=== PATIENT | female | born 2000 | race Caucasian/White ===

== ENCOUNTER → 2018-07-24 16:11 | Outpatient (CLI) | payer OTHER, SELFPAY ==
[2018-07-27 14:13] LABS: Neisseria gonorrhoeae, NAA Negative (Negative)
== END ==
PROVIDERS: Visit Provider Nurse Practitioner Obstetrics & Gynecology
DX: Z34.90 Encounter for supervision of normal pregnancy, unspecified, unspecified trimester (principal)
CPT/HCPCS: 87491; 87591

== ENCOUNTER → 2018-08-02 11:30 | Outpatient (CLI) | payer OTHER, SELFPAY ==
[2018-08-02 12:44] LABS: Basophils % 0.4 % (0.1-2.0); Eosinophils # 0.1 K/mm3 (0.0-0.4); Eosinophils % 0.6 % (0.1-12.0); Hematocrit 37.3 % (37.0-47.0); Lymphocytes # 2.7 K/mm3 (0.7-4.5); Lymphocytes % 24.1 % (10-50); Mean Corpuscular HGB Conc 32.3 g/dL (31.8-35.4); Mean Corpuscular Hemoglobin 27.4 pg (27.0-31.2); Mean Corpuscular Volume 84.8 fl (81-99); Mean Platelet Volume 7.2 fl (7.4-10.4); Monocytes # 0.7 K/mm3 (0.1-1.0); Monocytes % 6.1 % (1.7-9.3); Neutrophils # 7.7 K/mm3 (1.8-7.8); Neutrophils % 68.9 % (37.0-80.0); Platelet Count 310 K/mm3 (142-424); Red Blood Count 4.39 M/mm3 (4.20-5.40); Red Cell Distribution Width 12.8 % (11.5-17.5); White Blood Count 11.2 K/mm3 (4.5-13.0)
[2018-08-03 08:26] LABS: HIV Screen 4th Generation wRfx Non Reactive (Non Reactive)
[2018-08-03 15:52] LABS: Hepatitis B Surface Antigen Negative (Negative); Hepatitis C Antibody <0.1 s/co ratio (0.0-0.9); Rapid Plasma Reagin Ab Titer Non Reactive (NonRea<1:1); Rubella Antibodies, IgG <0.90 index (Immune >0.99)
== END ==
PROVIDERS: Visit Provider Nurse Practitioner Obstetrics & Gynecology
DX: Z34.90 Encounter for supervision of normal pregnancy, unspecified, unspecified trimester (principal)
CPT/HCPCS: 36415; 85025; 86592; 86703; 86762; 86850; 87340; 87380; G0432

== ENCOUNTER → 2019-01-08 09:06 | Outpatient (CLI) | payer OTHER, SELFPAY ==
--- NOTE | 2019-01-08 09:31 | US_ITS ---
US OB /maternal detail: INDICATION: ITS.REASON: US OB Complete ORDERING PHYSICIAN: Jeffery Mahoney MD PATIENT AGE: 18 years TECHNIQUE: ultrasound transabdominal scanning. COMPARISON: No previous relevant studies. FINDINGS: Single viable intrauterine gestation. Ceph position. Placenta: POST placenta grade GR 1-2. There is average amount fluid. The cervix appears satisfactory. Closed and measuring 4 cm in length. Complete survey performed and was unremarkable on the submitted images as in PACS. No discrete anomalies identified on survey imaging by technologist. Active fetus. Three-vessel cord with satisfactory umbilical cord insertion. 4- chamber heart noted. Survey of brain & ventricles unremarkable. Face and neck survey unremarkable. Diaphragm and chest views unremarkable. Abdomen: Both kidneys noted and unremarkable. Stomach noted and satisfactory. Spine: Survey of the spine satisfactory with no anomalies identified nor imaged. Both arms and legs noted. Amniotic Fluid: Adequate. Maternal adnexa: No significant findings. Measurements: Average ultrasound age 31w0d. Gestational Age 31w1d. Estimated due date by ultrasound age 0603/12/2019. Estimated weight 1651 grams. BPD = 31w1d OFD = 31w5d HC = 31w2d AC = 31w0d FL = 30w4d Growth Percentile= 29% Heart Rate = 158 bpm Cerebellum = 32w3d Humerus = 29w5d HC/AC is 1.06 (0.96-1.17). CI is 76% (70-86%). FL/BPD is 75% (71-87%). FL/AC is 22% (20-24%). IMPRESSION: There is a single live fetus with an average ultrasound age of 31 weeks and 0 days. heart and body motion noted. All parameters correlate. No obvious anomalies. Please see above for detail.
== END ==
PROVIDERS: Visit Provider Nurse Practitioner Obstetrics & Gynecology
DX: Z36.0 Encounter for antenatal screening for chromosomal anomalies (principal)
CPT/HCPCS: 76811

== ENCOUNTER → 2019-02-13 17:47 | Outpatient (CLI) | payer SELFPAY | PROVIDERS: Visit Provider Nurse Practitioner Obstetrics & Gynecology | DX: Z34.90 Encounter for supervision of normal pregnancy, unspecified, unspecified trimester (principal) | CPT/HCPCS: 86403 ==

== ENCOUNTER → 2019-03-07 08:29 | Outpatient (CLI) | payer OTHER, SELFPAY ==
--- NOTE | 2019-03-07 09:20 | US_ITS ---
US OB follow up: Indication: Evaluate growth ITS.REASON: Maternal care for unstable lie ORDERING PHYSICIAN: Jeffery Mahoney MD PATIENT AGE: 18 years FINDINGS: There is a single live fetus present just in cephalic presentation. The following parameters are obtained: Average ultrasound age is 36w6d. Estimated due date by ultrasound is 03/29/2019. Estimated weight is 3067 grams. This is 16 percentile BPD: 35w6d OFD: 39w0d HC: 36w2d AC: 37w0d FL: 38w0d heart rate: 138 bpm. HC/AC: 0.97 (0.87-1.06) Cephalic index: 78% (70-86%) FL/BPD: 84% (71-87%) FL/AC: 22% (20-24%) Amniotic fluid index: 18 cm Placenta: Posterior high Gr 3 Cervix: Appears closed and measures 4 cm IMPRESSION: Single live fetus with an average ultrasound age 36 weeks 6 days with an estimated weight of 3067 g which is 16th percentile. There is posterior placenta which is grade 3. There is average amount of amniotic fluid.
== END ==
PROVIDERS: PCP Nurse Practitioner Obstetrics & Gynecology; Visit Provider Nurse Practitioner Obstetrics & Gynecology
DX: O32.0XX1 Maternal care for unstable lie, fetus 1 (principal)
CPT/HCPCS: 76816

== ENCOUNTER 2019-03-10 12:02 | Outpatient (CLI) | payer OTHER, SELFPAY ==
[2019-03-10 12:10] VITALS: BP 120/68; PULSE 78; RESP 20; TEMP 37; O2SAT 100; BMI 28.5; BMI 30.4
[2019-03-10 12:45] LABS: Microscopic, Urine URINE MICROSCOPIC (MICROSCOPIC)
[2019-03-10 12:51] LABS: Appearance,Urine CLOUDY (Clear); Bilirubin,Urine Negative (Negative); Blood, Urine 1+ (Negative); Color,Urine YELLOW (Yellow); Glucose,Urine (UA) Negative (Negative); Ketones,Urine 2+ (Negative); Leukocyte Esterase,Urine Negative (Negative); Nitrate,Urine Negative (Negative); Protein,Urine Negative (Negative); Specific Gravity, Urine 1.015 (1.005-1.030); Urobilinogen,Urine 0.2 EU/dl (0.2)
[2019-03-10 12:58] LABS: Amphetamine/Metha Screen,Urine Negative ng/mL (<1000); Barbiturates Screen,Urine Negative ng/mL (<200); Benzodiazepines Screen,Urine Negative ng/mL (<200); Cannabinoid Screen,Urine Negative ng/mL (<50); Cocaine Screen,Urine Negative ng/mL (<300); Methadone Screen,Urine Negative ng/mL (<300); Opiate Screen,Urine Negative ng/mL (<300); Phencyclidine Screen,Urine Negative ng/mL (<25)
[2019-03-10 13:08] LABS: Bacteria,Urine 3+ /lpf; Mucus,Urine 2+ /lpf; Squamous Epithelial Cell,Urine 20-50 #/hpf (0-5)
== END 2019-03-10 16:00 | disposition home or self-care (01) ==
LOC: OBOUT 12:03 → OB 12:05
PROVIDERS: Obstetrics & Gynecology; Visit Provider Nurse Practitioner Obstetrics & Gynecology
DX: Z34.90 Encounter for supervision of normal pregnancy, unspecified, unspecified trimester (principal)
CPT/HCPCS: 59025; 80305; 81001; 87086

== ENCOUNTER 2019-03-11 07:24 | Outpatient (CLI) | payer OTHER, SELFPAY ==
[2019-03-11 07:29] VITALS: BP 119/69; PULSE 91; RESP 18; TEMP 36.6; O2SAT 100; BMI 27.6
[2019-03-11 10:17] VITALS: BMI 27.6
== END 2019-03-11 10:05 | disposition home or self-care (01) ==
LOC: OBOUT 07:25 → OB 07:26
PROVIDERS: Visit Provider Nurse Practitioner Obstetrics & Gynecology
DX: O60.03 Preterm labor without delivery, third trimester (principal); Z3A.40 40 weeks gestation of pregnancy
CPT/HCPCS: 59025

== ENCOUNTER 2019-03-12 05:11 | Inpatient (IN) ==
[2019-03-12 06:18] LABS: Basophils % 0.2 % (0.1-2.0); Eosinophils % 0.1 % (0.1-12.0); Hemoglobin 11.4 g/dL (12.2-16.2); Lymphocytes # 1.9 K/mm3 (0.7-4.5); Lymphocytes % 10.6 % (10-50); Mean Corpuscular HGB Conc 32.6 g/dL (31.8-35.4); Mean Corpuscular Volume 82.8 fl (81-99); Mean Platelet Volume 7.7 fl (7.4-10.4); Monocytes # 0.7 K/mm3 (0.1-1.0); Monocytes % 3.7 % (1.7-9.3); Neutrophils # 15.5 K/mm3 (1.8-7.8); Neutrophils % 85.4 % (37.0-80.0); Platelet Count 255 K/mm3 (142-424); Red Blood Count 4.22 M/mm3 (4.20-5.40); Red Cell Distribution Width 14.2 % (11.5-17.5); White Blood Count 18.1 K/mm3 (4.5-13.0)
[2019-03-12 07:04] LABS: Microscopic, Urine URINE MICROSCOPIC (MICROSCOPIC)
[2019-03-12 07:13] LABS: Appearance,Urine CLOUDY (Clear); Blood, Urine 1+ (Negative); Color,Urine YELLOW (Yellow); Glucose,Urine (UA) Negative (Negative); Ketones,Urine 3+ (Negative); Leukocyte Esterase,Urine 3+ (Negative); PH,Urine 6.5 (5.0-8.5); Protein,Urine 1+ (Negative); Specific Gravity, Urine 1.025 (1.005-1.030)
[2019-03-12 07:20] LABS: Lymphocytes % 14 % (10-50); Monocytes % 3 % (2-9); Neutrophils % 83 % (42-76); Total Cells Counted 100
[2019-03-12 07:32] LABS: Bilirubin,Urine Negative (Negative)
[2019-03-12 07:34] LABS: Amphetamine/Metha Screen,Urine Negative ng/mL (<1000); Barbiturates Screen,Urine Negative ng/mL (<200); Benzodiazepines Screen,Urine Negative ng/mL (<200); Cannabinoid Screen,Urine Negative ng/mL (<50); Cocaine Screen,Urine Negative ng/mL (<300); Methadone Screen,Urine Negative ng/mL (<300); Opiate Screen,Urine Negative ng/mL (<300); Phencyclidine Screen,Urine Negative ng/mL (<25)
[2019-03-12 07:39] LABS: Bacteria,Urine 1+ /lpf; RBC,Urine Occasional #/hpf (0-3); WBC,Urine 20-50 #/hpf (0-3)
--- NOTE | 2019-03-12 08:22 | Progress Note ---
Labor Note - Subjective: Date: 03/12/19 Time: 08:21 irregular contractions - Objective: NST:: Reactive Contractions:: every 4-5 minutes Cervical Dilation:: 5 Effacement:: 100% Station: -3 Membranes: artificially ruptured Comment:: There was thin meconium - Fetus: Monitoring?: Yes monitoring type:: External - Assessment: Labor progressing?: Yes Cephalopelvic disproportion?: No Patient Problems: All Active Problems (Updated 03/07/19 @ 14:19 by Aracely Owens MD) Rubella non-immune status, antepartum (Acute) (Acute) Back strain (Acute) Head lice (Acute) Spotting (Acute) Right flank pain (Acute) Laceration of right middle finger w/o foreign body w/o damage to nail (Acute) Abdominal pain (Acute) First trimester (Acute) - Plan: Anesthesia for epidural?: Yes Continue to labor down?: Yes Plan for ?: No Continue to monitor?: Yes Start pushing?: No
--- NOTE | 2019-03-12 10:02 | Progress Note ---
[facility] Anesthesia Checklist - Patient Identification Patient Identification: Arm Band - Structural Data Admitted From: Home Planned Operative Procedure/s: labor epidural Consent for Planned Operative Procedure(s) Verified: Yes Verified Documents: Surgical Consent, History and Physical - NPO Status Verified Time NPO: 00:00 - Additional verifications Anesthesia Reactions: No - Airway Assessment C-Spine Mobility Assessed: Yes TMJ Mobility Assessed: Yes Dentition: Good Dentition - Neurological Assessment Level of Consciousness: Awake, Alert - Anesthesia Plan Anesthesia Risk discussed: Yes Anesthesia Plan: Verified ASA Class: II Anesthesia Type: Epidural [facility] History I have reviewed the patient's past medical history: Yes Medical History: Denies:: Anxiety, Cancer, Depression, Diabetes Mellitus Type 1, Diabetes Mellitus Type 2, Hypertension, Migraine, MRSA, Seizures *Have you ever received a pneumonia vaccine?: No *Have you received a flu vaccine this season?: No Other Medical History: Reports: Other Other Surgeries: Yes: No Previous Surgery. No: Amputation: No Fractures: No - *Social History Smoking Status: Never smoker Alcohol Intake: never Substance Use Type: denies use *Occupational Status:: unemployed *Travel in the last 8 weeks: None - Psychiatric History Pschychiatric History:: Denies:: Anxiety, Depression Family Hx:: No significant family history PLANT SCIENTIST history: Spontaneous Para: 0
--- NOTE | 2019-03-12 10:22 | Progress Note ---
Labor Note - Subjective: Date: 03/12/19 Time: 10:21 regular contraction - Objective: NST:: Reactive Contractions:: every 2-3 minutes Cervical Dilation:: 7-8 Effacement:: 100% Station: -1 Membranes: artificially ruptured - Fetus: Monitoring?: Yes monitoring type:: Internal and External Comment:: She had a prolonged deceleration that has now recovered. I applied a scalp clip. - Assessment: Labor progressing?: Yes Cephalopelvic disproportion?: No Patient Problems: All Active Problems (Updated 03/07/19 @ 14:19 by Aracely Owens MD) Rubella non-immune status, antepartum (Acute) (Acute) Back strain (Acute) Head lice (Acute) Spotting (Acute) Right flank pain (Acute) Laceration of right middle finger w/o foreign body w/o damage to nail (Acute) Abdominal pain (Acute) First trimester (Acute) - Plan: Anesthesia for epidural?: Yes Continue to labor down?: Yes Plan for ?: No Continue to monitor?: Yes Start pushing?: No
--- NOTE | 2019-03-12 11:32 | Procedure Note ---
- Delivery Note Delivery Date:: 03/12/19 Delivery Time:: 10:52 Anesthesia Type: Epidural Was labor medically induced?: No Infant delivered prior to 39 weeks?: No Justification for early elective delivery:: Active Labor Gender: Male at 1 minute: 9 at 5 minutes: 9 LAC or MLE?: LAC Delivery Procedure:: She is a 18-year-old 2 para 0 aborta 1 who was 40+1 weeks gestational age. She was seen yesterday and was having regular contractions and sent home. She arrived this morning and was 5 cm dilated. She had her membranes ruptured and under labor epidural progressed to full dilation. She was having prolonged decelerations and since she was fully dilated we have elected to place forceps in the direct OA position station +3. The prolonged bradycardia was in the 60s and 70s. I used Marc forceps with pads. The bladder was empty. I applied the forceps and using a long gentle pull I was able to easily deliver the head. It was noted that there was a nuchal cord that was reduced. After delivery the head the anterior shoulder easily delivered. The cord was clamped and cut and the infant was handed off to Dr. Cochran who assigned Apgars of 9 at 1 and 9 at 5 minutes. We then obtained cord blood as well as cord pH. The pH was 7.30. Using gentle traction on the cord and countertraction on the fundus I was able to easily deliver the placenta intact at 1055. It had a normal three-vessel cord. She had 1/4 degree perineal laceration and [facility] I closed the rectal mucosa using interrupted 2-0 Vicryl suture. I then used a second imbricating layer to take the tension off the first layer. I then grasped the edges of the sphincter muscle with Allis clamps. I then placed interrupted 2-0 PDS suture at the posterior anterior and superior edges of the sphincter muscle. These were individually placed and then tied in the order in which they were placed. I then closed the vaginal mucosa using running 3-0 Vicryl Rapide suture in a locked fashion. The deep tissues of the perineum were then closed with a single 2-0 PDS suture followed by interrupted subcuticular 2- 0 Vicryl suture. I then performed a rectal examination and the mucosa seemed intact. Her hull grinder is Dr. Cochran. She is rubella nonimmune. She has a positive blood. She was group A streptococcus negative. She plans to bottlefeed. Her estimated blood loss was approximately 1000 cc. Laceration:: vaginal Placental Delivery Description: Spontaneous
[2019-03-12 22:24] VITALS: BP 116/65
[2019-03-13 06:20] LABS: Hematocrit 24.4 % (37.0-47.0)
[2019-03-13 06:21] LABS: Hemoglobin 7.8 g/dL (12.2-16.2)
--- NOTE | 2019-03-13 09:18 | Progress Note ---
Internal Medicine - PN: Subj *Date: 03/13/19 *Time: 09:17 Interval history: She is doing well this morning. She is eating and drinking and ambulating. Her bottom is still sore but she is doing better. Her hemoglobin is low at 7.8 but her lochia is normal. She did lose a significant amount of blood at the time of her surgery since she had 1/4 degree tear. She is bottlefeeding. He denies any shortness of breath or dizziness. Exam Vital signs and Labs for Last 24 Hours: Temp Pulse Resp BP Pulse Ox 98.6 F 110 H 16 116/65 100 03/12/19 22:22 03/12/19 22:22 03/12/19 22:22 03/12/19 22:22 03/12/19 22:22 Laboratory Results - last 24 hr 03/12/19 11:00: Cord ABG pH 7.30 L 03/13/19 06:01: Hgb 7.8 L*, Hct 24.4 L I & O for Last 24 hours: Intake & Output 03/10/19 03/11/19 03/12/19 03/13/19 11:59 11:59 11:59 11:59 Weight 161 lb Microbiology Reports for the Last 24 Hours: Microbiology 03/12/19 06:00 Urine,Clean Catch Urine Culture - Final Multiple organisms, suggests contamination. - Constitutional no acute distress Assessment and Plan (1) Forceps delivery with baby delivered Current visit: Yes Status: Acute Category: Medical Code(s): O75.9 - Complication of labor and delivery, unspecified (2) Anemia, Current visit: Yes Status: Acute Category: Medical Code(s): O90.81 - Anemia of the puerperium (3) Rubella non-immune status, antepartum Current visit: No Status: Acute Category: Medical Code(s): O99.89 - Other specified diseases and conditions complicating , childbirth and the puerperium; Z28.3 - Underimmunization status - Assessment and plan all Dx Assessment and Plan for all problems:: She is doing well this morning. Her hemoglobin is low at 7.8 but otherwise she is doing well. She denies any shortness of breath or dizziness. We will plan to send her home tomorrow.
[2019-03-14 06:25] LABS: Hematocrit 25.3 % (37.0-47.0); Hemoglobin 8.1 g/dL (12.2-16.2)
--- NOTE | 2019-03-14 08:36 | Discharge Summary ---
General - General Admission date:: 03/12/19 Discharge date: 03/14/19 HPI HPI: She is a 18-year-old 2 now para 1 aborta 1 who was 40+1 weeks gestational age. She was having regular contractions and was admitted. She was found to be 5 cm dilated. Hospital Course Hospital Course: She had her membranes ruptured and under labor epidural she progressed to full dilation. She was having prolonged bradycardia so we elected to deliver the baby with forceps. We delivered a liveborn male child at 10:52 AM on the morning of March 12, 2019. The baby weighed 6 pounds 12 ounces and was 19-1/2 inches long. He had Apgars of 9 at 1 minute and 9 at 5 minutes. pH was 7.30. She had a fourth degree tear that was repaired in the usual fashion with 2-0 PDS suture to the sphincter muscles and deep tissues of the perineum. She has done well and has remained afebrile throughout her hospitalization. She is eating and drinking and ambulating. She did have significant bleeding at the time of her fourth degree laceration repair and her hemoglobin now is 8.1. She is otherwise symptomatic and denies any shortness of breath or dizziness. She has A positive blood, she is rubella nonimmune and was group B streptococcus negative. She is discharged home to follow-up with me in approximately 2 weeks time. She will continue with her vitamins and iron. She will continue with stool softeners. Her condition on discharge is stable. Rhogam Administration: Not Indicated Objective Vital signs: Temp Pulse Resp BP Pulse Ox 98.6 F 110 H 16 116/65 100 03/12/19 22:22 03/12/19 22:22 03/12/19 22:22 03/12/19 22:22 03/12/19 22:22 no acute distress Results Labs on day of discharge: Labs from last 24 hours 03/14/19 05:45 Hgb 8.1 L Hct 25.3 L DS: Diagnosis - Discharge Diagnosis (1) Forceps delivery with baby delivered Status: Acute (2) Anemia, Status: Acute (3) Rubella non-immune status, antepartum Status: Acute (4) Forceps delivery with baby delivered Status: Acute Discharge Plan - Patient Discharge Instructions ACTIVITY: No heavy lifting DIET: continue same diet - Follow up Plan Disposition: Home, Self-Retirement Medications: Home Medications Medication Instructions Recorded Confirmed Type 1 tab PO DAILY 07/24/18 03/12/19 History vitamin,calcium,afwddbpk-tnqr-wbsmw acid tablet promethazine 12.5 mg tablet 12.5 mg PO Q6H PRN #14 tab 08/23/18 03/12/19 Rx Ferrous Sulfate 325 mg PO DAILY 03/12/19 03/12/19 History Docusate Sodium [Docusate Sodium 100 mg PO DAILY #30 cap 03/14/19 Rx 100mg Cap] Prescriptions/Medication Reconciliation: New Docusate Sodium [Docusate Sodium 100mg Cap] 100 mg PO DAILY #30 cap Continued vitamin,calcium,bcyuxluk-rxvr-qhwww acid tablet 1 tab PO DAILY promethazine 12.5 mg tablet 12.5 mg PO Q6H PRN #14 tab PRN Reason: nausea and vomiting Ferrous Sulfate 325 mg PO DAILY
== END 2019-03-14 12:35 | disposition home or self-care (01) | DRG 768 ==
LOC: OB 05:11
PROVIDERS: ADMIT Obstetrics & Gynecology; ATTEND Nurse Practitioner Obstetrics & Gynecology
CPT/HCPCS: C1758

== ENCOUNTER → 2020-08-06 08:01 | Outpatient (CLI) | payer OTHER, SELFPAY ==
--- NOTE | 2020-08-06 08:12 | US_ITS ---
PROCEDURE: US ABDOMEN LIMITED CLINICAL INDICATION: RUQ PAIN COMPARISON: No exams were available for comparison FINDINGS: PANCREAS: Unremarkable. No obvious mass or abnormal fluid collection. No ductal dilatation LIVER: No focal liver lesions demonstrated. Homogeneous echogenicity. No intrahepatic biliary ductal dilatation evident. There is appropriate direction of blood flow within a non dilated portal vein RIGHT KIDNEY: Unremarkable. Normal size and echogenicity. No hydronephrosis GALLBLADDER: No gallstones, gallbladder wall thickening, pericholecystic fluid, or biliary dilatation. IMPRESSION: Unremarkable limited abdominal ultrasound as detailed above disc Dictated by: Gilbert Perez MD 08/06/2020 18:17 Gilbert Perez MD in [place] 08/06/2020 18:17
== END ==
PROVIDERS: PCP Internal Medicine Adolescent Medicine; Visit Provider Internal Medicine Adolescent Medicine
DX: R10.11 Right upper quadrant pain (principal)
CPT/HCPCS: 76705

== ENCOUNTER → 2020-08-13 12:51 | Outpatient (CLI) | payer OTHER, SELFPAY ==
[2020-08-14 10:22] LABS: Covid-19 Nasal PCR Sendout Lex NOT DETECTED
== END ==
PROVIDERS: PCP Internal Medicine Adolescent Medicine; Visit Provider Internal Medicine Adolescent Medicine
DX: Z03.818 Encounter for observation for suspected exposure to other biological agents ruled out (principal)
CPT/HCPCS: U0004

== ENCOUNTER 2021-08-24 19:19 | Emergency (ER) | payer OTHER, SELFPAY ==
[2021-08-24 20:03] VITALS: BP 110/80; PULSE 93; RESP 22; O2SAT 97; BMI 33.2
--- NOTE | 2021-08-24 20:04 | XR_ITS ---
PROCEDURE INFORMATION: Exam: XR Chest Exam date and time: 08/24/2021 8:04 PM Age: 20 years old Clinical indication: Pain; Cough; Left-sided TECHNIQUE: Imaging protocol: XR of the chest. Views: 2 views. COMPARISON: No relevant prior studies available. FINDINGS: Lungs: Unremarkable. No consolidation. Pleural spaces: Unremarkable. No pleural effusion. No pneumothorax. Heart/Mediastinum: Unremarkable. No cardiomegaly. Bones/joints: Unremarkable. IMPRESSION: No acute findings.
--- NOTE | 2021-08-24 21:02 | HMH.EDUTC ---
[facility] Disposition Clinical Impression: Pleurisy, Viral syndrome Acute bronchitis Qualifiers: Bronchitis organism: unspecified organism Qualified Code(s): J20.9 - Acute bronchitis, unspecified Disposition: Home, Self-Care Condition on Discharge: Good Instructions: Pleurisy, DI for Acute Bronchitis, DI for Pleurisy, DI for COVID-19 (Suspected or Confirmed ), Preventing the Spread of Coronavirus Discharge Instructions Additional Instructions: Drink plenty of fluids. Take tylenol or ibuprofen for pain or fever. Take the medications as directed. Follow up with your regular doctor. GO TO THE ER FOR ANY WORSENING SYMPTOMS Quarantine until you know the results of your covid-19 test. If it is positive, the health department should call you and give you further instructions about your length of Quarantine and other things. Notify your school or workplace of your results and follow their instructions regarding return to work/school. Prescriptions: Benzonatate [Benzonatate 100mg cap] 100 mg PO TIDP PRN #30 cap PRN Reason: Cough Transmission Status: Received by [facility] methylPREDNISolone [Medrol] 4 mg PO DIRECTED 6 Days #21 packet Transmission Status: Received by [facility] Azithromycin [Z-Umesh 250mg Tab*] 250 mg PO UD DOSE PK #6 tab Transmission Status: Received by [facility] Referrals: Provider,Referral, [Primary Care Provider] - Forms: Work/School Release Time of Disposition: 21:23 Medical Decision Making - Medical Records Medical records reviewed: No: I reviewed the patient's medical records. - Jesús Inquiry Pt receiving controlled substance: No Vital Signs: 08/24/21 20:03 08/24/21 21:35 Temperature 98.3 F Pulse Rate 93 H Pulse Rate [Left] 93 H Respiratory Rate 22 22 Blood Pressure 110/80 Blood Pressure [Right Arm] 110/80 Blood Pressure Mean [Right Arm] 90 02 Sat by Pulse Oximetry 97 - Lab Data Lab results reviewed: Yes: I reviewed the patient's lab results. Lab Results 08/24/21 21:10: [facility]st Clinic Negative Orders (Tests/Meds): ORDERS Category Date Time Status Covid-19 Nasal PCR ([facility] Routine Lab 08/24/21 21:25 Received [facility] HPI - General Stated complaint: cough, pain left ribs x1wk Time Seen by Provider: 08/24/21 21:02 Mode of Arrival: Ambulatory Source of Information: Patient Limitations: No Limitations Description of Symptoms (Recalled from Triage Doc. by RN): pt c/o a productive cough with yellow sputum and chest congestion and pressure. pt states she has had a cough x1 wk. pt states she was taking nyquil every night and it made the cough worse. HEENT Symptoms (Recalled from RN notes): No Resp Symptoms (Recalled from RN notes): Yes (productive cough with yellow sputum with lung pain) Skin Symptoms (Recalled from RN notes): No MS Symptoms (Recalled from RN notes): No Functional Status (Recalled from RN notes): wnl - History of Present Illness Provider Complaint: She is having chest pain that is worse with deep breathing and coughing. She has been coughing and congested for the past 5 days. She denies shortness of breath. She denies fever, but she has had some chilling. - Related Data Home Medications Medication Instructions Recorded Confirmed prenat.vits,sammie,mur-lbjw-tttbt 1 tab PO DAILY 07/24/18 10/14/19 Previous Rx's Medication Instructions Recorded Docusate Sodium [Docusate Sodium 100 mg PO DAILY #30 cap 03/14/19 100mg Cap] medroxyprogesterone 150 mg/mL 150 mg IM [id number] #1 ml 04/15/19 intramuscular suspension predniSONE [Prednisone 20mg 20 mg PO BID 5 Days #10 tab 07/30/19 Tab] estradiol 2 mg tablet 2 mg PO DAILY 30 Days #30 tab 10/14/19 Azithromycin [Z-Umesh 250mg Tab*] 250 mg PO UD DOSE PK #6 tab 08/24/21 Benzonatate [Benzonatate 100mg 100 mg PO TIDP PRN #30 cap 08/24/21 cap] methylPREDNISolone [Medrol] 4 mg PO DIRECTED 6 Days #21 08/24/21 packet Allergie
[2021-08-24 21:23] LABS: UTC Pregnancy Test, Urine Negative (Negative)
[2021-08-24 21:35] VITALS: BP 110/80; PULSE 93; RESP 22; TEMP 36.8
== END 2021-08-24 21:35 | disposition home or self-care (01) ==
PROVIDERS: Emergency Provider Nurse Practitioner Family
DX: J20.9 Acute bronchitis, unspecified (principal); Z20.822 Contact with and (suspected) exposure to COVID-19; B34.9 Viral infection, unspecified; R09.1 Pleurisy
CPT/HCPCS: 71046; 81025; 99202; C9803; G0463; U0003; U0005

== ENCOUNTER 2022-05-06 06:23 | Emergency (ER) | payer OTHER, SELFPAY ==
[2022-05-06 06:32] VITALS: BP 135/81; PULSE 121; RESP 16; TEMP 38.8; O2SAT 95; BMI 26.5
--- NOTE | 2022-05-06 06:33 | XR_ITS ---
FINAL REPORT CLINICAL HISTORY: congestion, cough, chills COMPARISON: 08/25/2021 FINDINGS: 2 views of the chest were obtained . The heart is normal in size. The mediastinum is within normal limits. The lungs are clear. There is no pneumothorax. Osseous structures are unremarkable. IMPRESSION: No acute cardiopulmonary process. Reviewed, Interpreted and Dictated by Chi Gore III, MD Transcribed by Barb Goldstein Authenticated and [facility]
[2022-05-06 06:40] LABS: Influenza A, PCR Not Detected (NotDetected); Influenza B, PCR Not Detected (NotDetected)
[2022-05-06 06:45] LABS: Basophils # 0.1 K/mm3 (0-0.2); Basophils % 1.7 % (0.1-2.0); Eosinophils # 0.1 K/mm3 (0.0-0.4); Eosinophils % 1.5 % (0.1-12.0); Hematocrit 44.8 % (37.0-47.0); Hemoglobin 14.5 g/dL (12.2-16.2); Lymphocytes # 0.5 K/mm3 (0.7-4.5); Lymphocytes % 8.6 % (10-50); Mean Corpuscular HGB Conc 32.4 g/dL (31.8-35.4); Mean Corpuscular Hemoglobin 27.9 pg (27.0-31.2); Mean Corpuscular Volume 85.9 fl (81-99); Mean Platelet Volume 7.9 fl (7.4-10.4); Monocytes # 0.5 K/mm3 (0.1-1.0); Monocytes % 8.3 % (1.7-9.3); Neutrophils # 4.4 K/mm3 (1.8-7.8); Platelet Count 311 K/mm3 (142-424); Red Blood Count 5.22 M/mm3 (4.20-5.40); Red Cell Distribution Width 13.2 % (11.5-17.5); White Blood Count 5.5 K/mm3 (4.8-10.8)
[2022-05-06 06:48] LABS: Strep Scrn Group A (Rapid) Negative (Negative)
[2022-05-06 06:50] LABS: Chloride 107 mmol/L (98-107); Sodium 140 mmol/L (136-145)
[2022-05-06 06:51] LABS: Potassium 3.7 mmoL/L (3.5-5.1)
[2022-05-06 06:53] LABS: Alanine Aminotransferase 41 U/L (12-78); Albumin Level 4.6 g/dl (3.5-5.0); Albumin/Globulin Ratio 1.2 (1.1-1.8); Alkaline Phosphatase 91 U/L (38-126); Anion Gap 12.7 mEq/L (5-15); Aspartate Amino Transferase 45 U/L (14-36); Bilirubin,Total 0.2 mg/dl (0.2-1.3); Blood Urea Nitrogen 6 mg/dl (7-17); Carbon Dioxide 24 mmol/L (22.0-30.0); Creatinine Clearance Estimated 134 mL/min (50-200); Estimated Glomerular Filt Rate 104 ml/min (>60); GFR (African American) 125 ML/MIN (>60); Globulin 3.8 g/dL (1.3-3.2); Total Protein,Serum 8.4 g/dl (6.3-8.2)
[2022-05-06 06:54] LABS: Calcium 9.7 mg/dl (8.4-10.2); Glucose 111 mg/dl (74-100); HCG Qualitative, Serum Negative (Negative)
--- NOTE | 2022-05-06 06:58 | HMH.EDFEV ---
ED Disposition Clinical Impression: COVID-19 UTI (urinary tract infection) Qualifiers: Urinary tract infection type: site unspecified Hematuria presence: without hematuria Qualified Code(s): N39.0 - Urinary tract infection, site not specified Disposition: Home, Self-Care Condition on Discharge: Good Instructions: DI for Fever (Symptom) -- Adult, DI for COVID-19 (Suspected or Confirmed ) Additional Instructions: fluids and call pcp for urine culture results Prescriptions: levoFLOXacin [Levaquin 500mg tab] 500 mg PO DAILY #7 tab Transmission Status: Pending to [facility] Referrals: Provider,Referral, [Primary Care Provider] - - Critical Care Critical Care Time: No Attestation: On 05/06/22, the high probability of a clinically significant, sudden or life threatening deterioration of the following system(s) required my full and direct attention, intervention and personal management. The time I documented below is in addition to time spent performing reported procedures but includes the following listed in this critical care notation. Medical Decision Making - Medical Records Medical records reviewed: Yes: I reviewed the patient's medical records. - Jesús Inquiry Pt receiving controlled substance: No Vital Signs: 05/06/22 06:32 Temperature 101.8 F H Temperature Source Oral Pulse Rate [Right Brachial] 121 H Respiratory Rate 16 Blood Pressure [Right Arm] 135/81 Blood Pressure Mean [Right Arm] 99 Blood Pressure Source [Right Arm] Automatic Cuff Blood Pressure Position [Right Arm] Sitting 02 Sat by Pulse Oximetry 95 Oxygen Delivery Method Room Air - Lab Data Lab results reviewed: Yes: I reviewed the patient's lab results. Lab Results 05/06/22 06:35: Group A Strep Rapid Negative 05/06/22 06:36: WBC 5.5, RBC 5.22, Hgb 14.5, Hct 44.8, MCV 85.9, MCH 27.9, MCHC 32.4, RDW 13.2, Plt Count 311, MPV 7.9, Neut % (Auto) 80.0, Lymph % (Auto) 8.6 L, [place] % (Auto) 8.3, Eos % (Auto) 1.5, Baso % (Auto) 1.7, Neut # (Auto) 4.4, Lymph # (Auto) 0.5 L, [place] # (Auto) 0.5, Eos # (Auto) 0.1, Baso # (Auto) 0.1 05/06/22 06:36: Sodium 140, Potassium 3.7, Chloride 107, Carbon Dioxide 24, Anion Gap 12.7, BUN 6 L, Creatinine 0.70, Estimated Creat Clear 134, Estimated GFR 104, Est GFR ( Amer) 125, Glucose 111 H, Calcium 9.7, Total Bilirubin 0.2, AST 45 H, ALT 41, Alkaline Phosphatase 91, C-Reactive Protein 23.3 H, Total Protein 8.4 H, Albumin 4.6, Globulin 3.8 H, Albumin/Globulin Ratio 1.2 05/06/22 06:36: Serum HCG, Qual Negative 05/06/22 07:06: Urine Color Yellow, Urine Appearance Sl cloudy, Urine pH 7.5, Ur Specific [place] 1.020, Urine Protein Negative, Urine Glucose (UA) Negative, Urine Ketones 2+, Urine Blood Trace-i, Urine Nitrate Negative, Urine Bilirubin Negative, Urine Urobilinogen 1.0, Ur Leukocyte Esterase 2+ A Result diagrams: 05/06/22 06:36 05/06/22 06:36 Orders (Tests/Meds): ED MEDICATIONS Generic Name Dose Route Start Last Admin Trade Name Freq PRN Reason Stop Dose Admin Sodium Chloride 1,000 mls @ 999 mls/hr 05/06/22 06:45 05/06/22 06:38 Sod Chlor 0.9% 1000ml Bag IV 05/06/22 07:45 999 mls/hr .[id number] ARUN Administration Discontinued Medications Generic Name Dose Route Start Last Admin Trade Name Freq PRN Reason Stop Dose Admin Acetaminophen 1,000 mg 05/06/22 06:38 05/06/22 06:39 Acetaminophen 500mg Tab PO 05/06/22 06:39 1,000 mg ONCE ONE Administration Ketorolac Tromethamine 30 mg 05/06/22 06:35 Ketorolac 30mg/Ml Vial IV 05/06/22 06:36 ONCE ONE Methylprednisolone Sodium Succinate 125 mg 05/06/22 06:35 Methylprednisolone Sod Succ 125mg Vial IV 05/06/22 06:36 ONCE ONE ORDERS Category Date Time Status XR chest 2V Stat Exams 05/06/22 06:33 Taken C-Reactive Protein Stat Lab 05/06/22 06:36 Results Complete Blood Count Auto Diff Stat Lab 05/06/22 06:36 Results Comprehensive Metabolic Panel Stat Lab 05/06/22 06:36 Results Erythr
[2022-05-06 06:59] LABS: C-Reactive Protein 23.3 mg/L (0-4)
[2022-05-06 07:00] VITALS: BP 103/70; PULSE 107; O2SAT 98
--- NOTE | 2022-05-06 07:03 | PC.NURSE ---
pt ambulatory to restroom without complication
--- NOTE | 2022-05-06 07:10 | PC.NURSE ---
pt ambulatory to radiology without complication
[2022-05-06 07:12] LABS: Microscopic, Urine URINE MICROSCOPIC (MICROSCOPIC)
[2022-05-06 07:13] LABS: Appearance,Urine SL CLOUDY (Clear); Bilirubin,Urine Negative (Negative); Blood, Urine TRACE-I (Negative); Color,Urine YELLOW (Yellow); Glucose,Urine (UA) Negative (Negative); Ketones,Urine 2+ (Negative); Leukocyte Esterase,Urine 2+ (Negative); Nitrate,Urine Negative (Negative); PH,Urine 7.5 (5.0-8.5); Protein,Urine Negative (Negative)
[2022-05-06 07:17] LABS: Erythrocyte Sedimentation Rate 17 mm/hr (0-20)
[2022-05-06 07:17] LABS: Coronavirus 19, PCR Detected (NotDetected)
[2022-05-06 07:24] LABS: Bacteria,Urine 1+ /lpf; RBC,Urine Occasional #/hpf (0-3)
--- NOTE | 2022-05-06 07:28 | PC.NURSE ---
at the bedside to review test results
--- NOTE | 2022-05-06 07:33 | PC.NURSE ---
pt medicated per mar. no needs voiced at this time
[2022-05-06 07:35] LABS: Procalcitonin 0.078 ng/mL (0.0-2.0)
[2022-05-06 08:37] VITALS: BP 129/72; PULSE 89; RESP 18; TEMP 37; O2SAT 96
== END 2022-05-06 08:38 | disposition home or self-care (01) ==
PROVIDERS: Emergency Provider Emergency Medicine
DX: U07.1 COVID-19 (principal); N39.0 Urinary tract infection, site not specified; J02.9 Acute pharyngitis, unspecified; M79.10 Myalgia, unspecified site; R53.81 Other malaise; R43.2 Parageusia; F32.A Depression, unspecified; F41.9 Anxiety disorder, unspecified; Z79.52 Long term (current) use of systemic steroids; Z79.899 Other long term (current) drug therapy
CPT/HCPCS: 71046; 80053; 81001; 84145; 84703; 85025; 85651; 86140; 87086; 87430; 96361; 96374; 96375; 99285; C9803; J0696; U0003; U0005

== ENCOUNTER 2022-09-12 14:42 | Emergency (ER) | payer OTHER, SELFPAY ==
[2022-09-12 18:40] VITALS: BP 131/80; PULSE 121; RESP 19; TEMP 38.2; O2SAT 98; BMI 28.3
[2022-09-12 18:45] LABS: UTC Influenza A Antigen Negative (Negative); UTC Influenza B Antigen Negative (Negative)
[2022-09-12 18:46] LABS: UTC Strep Screen (Rapid) Positive (Negative)
[2022-09-12 18:50] VITALS: BP 131/80; PULSE 121; RESP 19; TEMP 38.2; O2SAT 98
--- NOTE | 2022-09-12 18:53 | EXP.UTC ---
Discharge Plan Disposition Patient Disposition: Home, Self-Care Condition: Good Prescriptions Prescriptions: New azithromycin [Zithromax Z-Umesh] 250 mg tablet See Rx Instructions .ROUTE .COMPLEX 5 Days Qty: 6 0RF Rx Instructions: For 250 mg dose pack: take 500 mg today (day 1), then 250 mg for 4 days (days 2-5) No Action medroxyprogesterone 150 MG/ML suspension 150 mg IM [id number] levofloxacin 500 MG tablet 500 mg PO DAILY Qty: 7 0RF Referrals Follow up/Referrals: Provider,Referral, MD [Primary Care Provider] - See instructions Activity Restrictions/Add. Instructions Additional Instructions/Restrictions: *Monitor Temp, Over the counter Motrin or Tylenol as directed/as needed Tylenol every 4 hours and Motrin every 6 hours (as long as your family doctor has told you that you can take it) for fever or pain. and straight to ER if unable to lower temp less than 101.0 after medication given *Warm salt water gargles may help to soothe the throat *Throat Lozenges? *Warm fluids like tea with honey may help to soothe the throat? *Sleep elevated *Humidifier/Vaporizer *If you did not take Penicillin shot or was unable to, start taking antibiotic immediately and make sure that you take it for the FULL length of time although you should start to feel better in 24-48 hours *change toothbrush and toothpaste 24-48 hours after starting to take antibiotics so you do not reinfect yourself Monitor Temp. Tylenol and/or Ibuprofen as needed. ER if fever is no less than 101 despite alternating Tylenol and Ibuprofen * Encourage fluids, water, Gatorade, powerade, pedialyte if infant/toddler/or child *Cold fluids, popsicles and ice cream may feel good on his throat Follow up IMMEDIATELY for new or worsening symptoms or no Noticeable improvement over the next 48-72 hours. 911 for difficulty breathing or swallowing Clinical Impressions Clinical Impression: Strep throat Stand Alone Forms Stand Alone Forms: Work/School Release Instructions Patient Instructions: Strep Throat, DI for Strep Throat Discharge ED Provider: Mary Camacho [facility] HPI General Stated complaint: Fever,Sore throat Mode of Arrival: Ambulatory Source of Information: Patient Limitations: No Limitations Time Seen by Provider: 09/12/22 18:53 Description of Symptoms (Recalled from Triage Doc. by RN): PATIENT C/O SORE THROAT, FEVER, AND WEAKNESS SINCE YESTERDAY HEENT Symptoms (Recalled from RN notes): Yes Resp Symptoms (Recalled from RN notes): No Skin Symptoms (Recalled from RN notes): No MS Symptoms (Recalled from RN notes): No Functional Status (Recalled from RN notes): WNL History of Present Illness Provider Complaint: Patient states that she started yesterday with sore throat States that her right tonsil is very swollen and hurts when she swallows States that today her throat was hurting worse and hurt to swallow States that she has had headache and chills and felt like she had fever earlier Related Data Home Medications Medication Instructions Recorded Confirmed medroxyprogesterone 150 mg/mL 150 mg IM [id number] control 05/06/22 05/06/22 intramuscular suspension Previous Rx's Medication Instructions Recorded levofloxacin 500 mg tablet 500 mg PO DAILY #7 tabs 05/06/22 azithromycin 250 mg tablet See Rx Instructions PO .COMPLEX 5 09/12/22 (Zithromax Z-Umesh) days #6 tabs Allergies Allergy/AdvReac Type Severity Reaction Status Date / Time No Known Allergies Allergy Verified 10/14/19 14:40 Worker's Comp Is this a Worker's Comp case?: No [facility] Disclaimer: The information contained in this section may have been updated after the patient was seen, as this information can be updated by other users. Medical History (Updated 09/12/22 @ 19:03 by Mary Camacho APRN) No significant past medical history Social History (Updated 09/12/22 @ 18:49 by Deborah Davies RN) Smoking Status: Nev
== END 2022-09-12 19:32 | disposition home or self-care (01) ==
PROVIDERS: Emergency Provider Nurse Practitioner
DX: J02.0 Streptococcal pharyngitis (principal)
CPT/HCPCS: 87804; 87880; 96372; 99213; G0463; J0561

== ENCOUNTER → 2023-09-08 16:48 | Outpatient (CLI) | payer OTHER, SELFPAY | PROVIDERS: PCP Nurse Practitioner Family; Visit Provider Nurse Practitioner Family | DX: J02.9 Acute pharyngitis, unspecified (principal) | CPT/HCPCS: 87070 ==

== ENCOUNTER 2023-10-17 22:18 | Outpatient (CLI) | payer OTHER, SELFPAY | END 2023-10-17 23:59 | LOC: LAB.DROPOF 22:18 | PROVIDERS: PCP Nurse Practitioner Family; Visit Provider Nurse Practitioner Family | DX: R05.8 Other specified cough (principal); J02.9 Acute pharyngitis, unspecified; R19.7 Diarrhea, unspecified | CPT/HCPCS: 87070; 87635 ==

== ENCOUNTER 2024-10-25 11:20 | Outpatient (CLI) | payer OTHER, SELFPAY | END 2024-10-25 23:59 | disposition home or self-care (01) | LOC: LAB.DROPOF 10-26 08:53 | PROVIDERS: PCP Nurse Practitioner Family; Visit Provider Nurse Practitioner Family | DX: R69 Illness, unspecified (principal) | CPT/HCPCS: 87070 ==

== ENCOUNTER 2025-09-22 17:32 | Emergency (ER) | payer OTHER, SELFPAY ==
--- OUTSIDE RECORDS SUMMARY | 2024-12-28 16:30 | XMS_ITS ---
Author Organization [facility] Address [address] [facility] [address] [place] [address] Care Team Providers Care Printed Circuit Board Panels Trimmer Name Role Phone Papi Garland Primary Care Provider [phone] Migration, Provider Unavailable Unavailable REASON FOR VISIT Multum To Medispan Conversion Encounter Medications Medication SIG (Take, Route, Frequency, Duration) Notes Start Date End Date Status Phenergan 25 MG TABLET 1 TAB(S) ORALLY EVERY 6 HOURS; Duration: 3 DAY(S) *Please review and pick correct strength-formulation from [employer] options. If intended option is not shown, discontinue and re-order from Quick Search* 11/02/2021 Active Imitrex 100 MG Tablet 1 tab(s) orally once; Duration: 1 dose(s) at start of headache 11/02/2021 Active Encounters Encounter Location Date Provider Diagnosis [facility] [address] [facility] [address] [place] [id number] 12/28/2024 Provider Migration Intractable migraine without aura and without status migrainosus G43.019 Assessments Encounter Date Diagnosis (ICD Code) Assessment Notes Treatment Notes Treatment Clinical Notes Section Notes 12/28/2024 Intractable migraine without aura and without status migrainosus (ICD-10 - G43.019) Plan Of Treatment Medication Medication Name Sig Start Date Stop Date Notes Phenergan 25 MG TABLET 1 TAB(S) ORALLY EVERY 6 HOURS; Duration: 3 DAY(S) 11/02/2021 *Please review and pick correct strength-formulation from [employer] options. If intended option is not shown, discontinue and re-order from Quick Search* Imitrex 100 MG Tablet 1 tab(s) orally once; Duration: 1 dose(s) at start of headache 11/02/2021 Progress Notes * RADHAArina EDOB: [birth year] (24 yo F)Acc No.[id number]:12/28/2024 Patient: Arina Blanco Provider: Rajesh Brown :2000 A ge:24 Y S ex:Female Date:12/28/2024 Address:[address] [place], [place] [phone] Pcp:Papi Garland Subjective: * Chief Complaints: * M ultum To Medispan Conversion Encounter Assessment: * Assessment: 1. I ntractable migraine without aura and without status migrainosus - G43.019 (Primary) ? Plan: * Treatment: Billing Information: * Procedure Codes: * Electronic signature of Prov ider Migration on 09/22/2025 at 05:41 PM EST Sign off status: Pending * Provider: Rajesh Brown Date: 0 12/28/2024 Generated for Yonny santana/Kelsea/eTransmitting on: 1 05:41 PM EST
[2025-09-22 17:31] VITALS: BP 121/72; PULSE 86; RESP 18; TEMP 36.9; O2SAT 99; BMI 35.2
--- NOTE | 2025-09-22 17:34 | PC.NURSE ---
FSBS 151
--- NOTE | 2025-09-22 17:36 | PC.NURSE ---
FSBS 171 at this time
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
--- OUTSIDE RECORDS SUMMARY | 2025-09-22 17:41 | XMS_ITS | Patient Health Record ---
Author Organization [facility] Address [address] [place] [address] Care Team Providers Care Cleaner Laboratory Equipment Name Role Phone Papi Garland Primary Care Provider Migration, Provider Unavailable Unavailable Allergies No Known Allergies Reason For Referral No Information Medications Medication SIG (Take, Route, Frequency, Duration) Notes Start Date End Date Status Phenergan 25 MG TABLET 1 TAB(S) ORALLY EVERY 6 HOURS; Duration: 3 DAY(S) *Please review and pick correct strength-formulation from [employer] options. If intended option is not shown, discontinue and re-order from Quick Search* 11/02/2021 Active Imitrex 100 MG Tablet 1 tab(s) orally once; Duration: 1 dose(s) at start of headache 11/02/2021 Active Social History Tobacco Use: Social History Observation Description Date Details (start date - stop date) Never Smoker NA - NA Social History Social History Social Info Question Answer Notes Smoking: Are you a: nonsmoker Additional Details Category Social Info Options Details Social History Occupation: stay at home mom Travel outside [place]: no Alcohol: no Recreational drug use: no Exercise: no Caffeine: yes several sodas da dennis Living Will No Problems Problem Type SNOMED Code ICD Code Onset Dates Problem Status W/U Status Risk Notes Problem Refractory migraine without aura (821678212) Intractable migraine without aura and without status migrainosus (G43.019) Active confirmed Problem Amenorrhea (10499139) Amenorrhea (N91.2) Active confirmed Encounters Encounter Location Date Provider Diagnosis [facility] [address] [place] [address] 12/28/2024 Provider Migration Intractable migraine without aura and without status migrainosus G43.019 Assessments Encounter Date Diagnosis (ICD Code) Assessment Notes Treatment Notes Treatment Clinical Notes Section Notes 12/28/2024 Intractable migraine without aura and without status migrainosus (ICD-10 - G43.019) Plan Of Treatment Pending Test Test Name Order Date Ultrasound : Gallbladder 08/05/2020 M-COVID PCR SINGLE RAPID 08/13/2020 Insurance Providers Payer Name Payer Address Payer Phone Subscriber Number Group Number Insured Name Patient Relationship to Insured Coverage Start Date Coverage End Date [employer] [facility] [address] [address] [place] [address] [phone] [id number] Arina Lieberman Self - patient is the insured Medical (General) History Surgical History Surgery Date(Month/Year)
--- OUTSIDE RECORDS SUMMARY | 2025-09-22 17:41 | XMS_ITS | Data Portability ---
Author Organization [facility] [place] - [place] Address [address] [address] Care Team Providers Care Professor Of Surgery Name Role Phone MAO PACHECO Primary Care Provider Unavailabl e Assessment No assessment recorded. Plan of Treatment Reminders Order Date Submit Date Provider Last Modified By Organization Details Last Modified Time Details Appointments None recorded. Lab urinalysis, dipstick [address], [phone], 4 17:40:47 test, urine [email or web address] [place] [address], [address] [place] [address], [phone], 4 17:40:18 culture, urine 2023 024 MELLOTT [facility], [address] [place] [address], [address], 4 01:06:06 Referral None recorded. Procedures None recorded. Surgeries None recorded. Imaging XR, wrist, 3 or more view 2023 024 [email or web address] Not available 08:54:10 Medication Orders Bactrim DS 800 mg-160 mg tablet 2023 024 JETHRO [facility], [address] [place], [address], 4 17:59:14 citalopram 10 mg tablet 2023 024 [facility], [address] [place] [address], [address], 4 13:28:24 buspirone 10 mg tablet 2023 024 [facility], [address] [place] [address], [address], 4 17:57:19 Depo-Computer Training Specialist a 150 mg/mL intramuscul ar suspension 2023 024 [email or web address] Not available 4 16:25:31 Depo-Computer Training Specialist a 150 mg/mL intramuscul ar suspension 2023 024 [email or web address] Not available 4 17:12:33 prednisone 20 mg tablet 2023 024 [facility], [address] [place] [address], [address], 4 12:59:15 albuterol sulfate HFA 90 mcg/actuati on aerosol inhaler 2023 024 [facility], [address] [place] [address], [address], 4 16:29:20 Patient TargetsNo targets recorded. Patient InstructionsNo instructions recorded. Reason for Referral None Reported. Results Created Date Observation Date Name Description Value Unit Range Abnormal Flag Note LastModifiedBy Organization Detail LastModifiedTime 01/03/20 24 01/04/2024 THINP REP TIS PAP, HPV MRNA E6/E7 RFX HPV 16,18 /45, CHLAM YDIA/ N.STEPHANY ORRHO EAE report status: Not Available [facility] [place] [facility] [address] [facility], [place], [address], 01/04/2024 18:09:45 01/03/20 24 01/04/2024 THINP REP TIS PAP, HPV MRNA E6/E7 RFX HPV 16,18 /45, CHLAM YDIA/ N.STEPHANY ORRHO EAE clinical information: Not Available [facility] [place] [facility] [address] [place], [address], 01/04/2024 18:09:45 01/03/20 24 01/04/2024 THINP REP TIS PAP, HPV MRNA E6/E7 RFX HPV 16,18 /45, CHLAM YDIA/ N.STEPHANY ORRHO EAE LMP: Not Available [facility] [address] [place], [address], 01/04/2024 18:09:45 01/03/20 24 01/04/2024 THINP REP TIS PAP, HPV MRNA E6/E7 RFX HPV 16,18 /45, CHLAM YDIA/ N.STEPHANY ORRHO EAE prev. Pap: Not Available [facility] [address] [place], [address], 01/04/2024 18:09:45 01/03/20 24 01/04/2024 THINP REP TIS PAP, HPV MRNA E6/E7 RFX HPV 16,18 /45, CHLAM YDIA/ N.STEPHANY ORRHO EAE prev. BX: Not Available [facility] [address] [place], [address], 01/04/2024 18:09:45 01/03/20 24 01/04/2024 THINP REP TIS PAP, HPV MRNA E6/E7 RFX HPV 16,18 /45, CHLAM YDIA/ N.STEPHANY ORRHO EAE source: Not Available [employer] [facility] [place] [facility] [address] [place], [address], 01/04/2024 18:09:45 01/03/20 24 01/04/2024 THINP REP TIS PAP, HPV MRNA E6/E7 RFX HPV 16,18 /45, CHLAM YDIA/ N.STEPHANY ORRHO EAE statement of adequacy: Not Available [facility] [address] [place], [address], 01/04/2024 18:09:45 01/03/20 24 01/04/2024 THINP REP TIS PAP, HPV MRNA E6/E7 RFX HPV 16,18 /45, CHLAM YDIA/ N.STEPHANY ORRHO EAE general categorizati on: Not Available [facility] [address] [place], [address], 01/04/2024 18:09:45 01/03/20 24 01/04/2024 THINP REP TIS PAP, HPV MRNA E6/E7 RFX HPV 16,18 /45, CHLAM YDIA/ N.STEPHANY ORRHO EAE interpretati on/result: Not Available [facility] [address] [place], [address], 01/04/2024 18:09:45 01/03/20 24 01/04/2024 THINP REP TIS PAP, HPV MRNA E6/E7 RFX HPV 16,18 /45, CHLAM YDIA/ N.STEPHANY ORRHO EAE infection: Not Available [facility] [address] [place], [address], 01/04/2024 18:09:45 01/03/20 24 01/04/2024 THINP REP TIS PAP, HPV MRNA E6/E7 RFX HPV 16,18 /45, CHLAM YDIA/ N.STEPHANY ORRHO EAE comment: Not Available [facility] [place] [address] [place], [address], 01/04/2024 18:09:45 01/03/20 24 01/04/2024 THINP REP TIS PAP, HPV MRNA E6/E7 RFX HPV 16,18 /45, CHLAM YDIA/ N.STEPHANY ORRHO EAE cytotechnolo gist: Not Available [facility] - [address], [place], [address], 01/04/2024 18:09:45 01/03/20 24 01/04/2024 THINP REP TIS PAP, HPV MRNA E6/E7 RFX HPV 16,18 /45, CHLAM YDIA/ N.STEPHANY ORRHO EAE review cytotechnolo gist: Not Available [facility] [place] [facility] [address] [place], [address], 01/04/2024 18:09:45 01/03/20 24 01/04/2024 THINP REP TIS PAP, HPV MRNA E6/E7 RFX HPV 16,18 /45, CHLAM YDIA/ N.STEPHANY ORRHO EAE pathologist: Not Available [facility] [address] [place], [address], 01/04/2024 18:09:45 01/03/20 24 01/04/2024 THINP REP TIS PAP, HPV MRNA E6/E7 RFX HPV 16,18 /45, CHLAM YDIA/ N.STEPHANY ORRHO EAE HPV MRNA E6/E7 Not Available [facility] [place] [facility] [address] [place], [address], 01/04/2024 18:09:45 01/03/20 24 01/04/2024 THINP REP TIS PAP, HPV MRNA E6/E7 RFX HPV 16,18 /45, CHLAM YDIA/ N.STEPHANY ORRHO EAE chlamydia trachomatis RNA, tma, urogenital NOT DETECT ED not detect ed normal Not Available [facility] [place] [facility] [address] [place], [address], 01/04/2024 18:09:45 01/03/20 24 01/04/2024 THINP REP TIS PAP, HPV MRNA E6/E7 RFX HPV 16,18 /45, CHLAM YDIA/ N.STEPHANY ORRHO EAE neisseria gonorrhoeae RNA, tma, urogenital NOT DETECT ED not detect ed normal Not Available [facility] [place] [facility] [address] [place], [address], 01/04/2024 18:09:45 01/03/20 24 01/04/2024 THINP REP TIS PAP, HPV MRNA E6/E7 RFX HPV 16,18 /45, CHLAM YDIA/ N.STEPHANY ORRHO EAE comment The pasty tical perfo rmanc e chan cteri stics of this assay , when used to test SureP ath(T M) speci mens have been deter mined by [facility]. The modif icati ons have not been clear ed or appro sotero by the FDA. This assay has been valid ated pursu ant to the CLIA regul ation s and is used for clini sammie purpo ses. For addit ional natalier valencia jordan e refer to https ://ed ucati on.qu estdi crobo tics. com/f aq/FA Q154 (This link is being provi ded for infor darlene villanueva/ educa charlotte l purpo ses only. ) Not Available [facility] [place] [facility] [address] [place], [address], 01/04/2024 18:09:45 01/03/20 24 01/05/2024 THINP REP TIS PAP, HPV MRNA E6/E7 RFX HPV 16,18 /45, CHLAM YDIA/ N.STEPHANY ORRHO EAE clinical information: normal None given Not Available [facility] [place] [facility] [address] [place], [address], 01/05/2024 21:58:47 01/03/20 24 01/05/2024 THINP REP TIS PAP, HPV MRNA E6/E7 RFX HPV 16,18 /45, CHLAM YDIA/ N.STEPHANY ORRHO EAE LMP: normal NONE GIVEN Not Available [facility] [place] [facility] [address] [facility], [place], [address], 01/05/2024 21:58:47 01/03/20 24 01/05/2024 THINP REP TIS PAP, HPV MRNA E6/E7 RFX HPV 16,18 /45, CHLAM YDIA/ N.STEPHANY ORRHO EAE prev. Pap: normal NONE GIVEN Not Available [facility] [place] [facility] [address] [facility], [facility], [place], [address], 01/05/2024 21:58:47 01/03/20 24 01/05/2024 THINP REP TIS PAP, HPV MRNA E6/E7 RFX HPV 16,18 /45, CHLAM YDIA/ N.STEPHANY ORRHO EAE prev. BX: normal NONE GIVEN Not Available [facility] [place] [facility] [address] [facility], [facility], [place], [address], 01/05/2024 21:58:47 01/03/20 24 01/05/2024 THINP REP TIS PAP, HPV MRNA E6/E7 RFX HPV 16,18 /45, CHLAM YDIA/ N.STEPHANY ORRHO EAE source: normal None given Not Available [facility] [place] [facility] [address] [facility], [place], [address], 01/05/2024 21:58:47 01/03/20 24 01/05/2024 THINP REP TIS PAP, HPV MRNA E6/E7 RFX HPV 16,18 /45, CHLAM YDIA/ N.STEPHANY ORRHO EAE statement of adequacy: normal Satis facto ry for evalu ation . Endoc ervic al/tr ansfo rmati on zone compo nent prese nt. Parti ally obscu ring infla mmati on Not Available [facility] [place] [facility] [address] [facility], [facility], [place], [address], 01/05/2024 21:58:47 01/03/20 24 01/05/2024 THINP REP TIS PAP, HPV MRNA E6/E7 RFX HPV 16,18 /45, CHLAM YDIA/ N.STEPHANY ORRHO EAE general categorizati on: abnormal Cytol ogy Resul ts: Epith elial Cell Abnor malit y Not Available [facility] [place] [facility] [address] [facility], [facility], [place], [address], 01/05/2024 21:58:47 01/03/20 24 01/05/2024 THINP REP TIS PAP, HPV MRNA E6/E7 RFX HPV 16,18 /45, CHLAM YDIA/ N.STEPHANY ORRHO EAE interpretati on/result: abnormal Atypi sammie Squam ous Cells of Undet ermin ed Signi fican ce (ASC- [place]) Not Available [facility] [place] [facility] [address] [place], [address], 01/05/2024 21:58:47 01/03/20 24 01/05/2024 THINP REP TIS PAP, HPV MRNA E6/E7 RFX HPV 16,18 /45, CHLAM YDIA/ N.STEPHANY ORRHO EAE comment: normal This Pap test has been evalu ated with compu lazo techn ology . Not Available [facility] [place] [facility] [address] [place], [address], 01/05/2024 21:58:47 01/03/20 24 01/05/2024 THINP REP TIS PAP, HPV MRNA E6/E7 RFX HPV 16,18 /45, CHLAM YDIA/ N.STEPHANY ORRHO EAE cytotechnolo gist: normal DMB, CT( CP) CT Scree dominguez Locat ion: [facility] [address], [place] [address] Not Available [facility] [place] [facility] [address] [place], [address], 01/05/2024 21:58:47 01/03/20 24 01/05/2024 THINP REP TIS PAP, HPV MRNA E6/E7 RFX HPV 16,18 /45, CHLAM YDIA/ N.STEPHANY ORRHO EAE pathologist: normal Eliel baca M.D., Board Certi fied in Anato florencio Patho logy and Clini sammie Patho logy (elec troni c signa ture) Not Available [facility] [place] [facility] [address] [place], [address], 01/05/2024 21:58:47 01/03/20 24 01/05/2024 THINP REP TIS PAP, HPV MRNA E6/E7 RFX HPV 16,18 /45, CHLAM YDIA/ N.STEPHANY ORRHO EAE comment EXPLA NATOR Y NOTE: The Pap is a scree dominguez test for cervi sammie cance r. It is not a diagn ostic test and is subje ct to false negat sherley and false posit sherley resul ts. It is most relia ble when a satis facto ry sampl e, regul christina obtai mega, is submi tted with relev ant clini sammie findi ngs and histo ry, and when the Pap resul t is evalu ated along with histo ronald and curre nt clini sammie infor matio n. Not Available [facility] [place] [facility] [address] [facility], [place], [address], 01/05/2024 21:58:47 01/03/20 24 01/05/2024 THINP REP TIS PAP, HPV MRNA E6/E7 RFX HPV 16,18 /45, CHLAM YDIA/ N.STEPHANY ORRHO EAE HPV MRNA E6/E7 Detect ed not detect ed abnormal Metho dolog y: Trans cript ion-M ediat ed Ampli ficat ion This assay detec ts E6/E7 viral messe nger RNA (mRNA ) from 14 high- risk HPV types (16,1 8,31, 33,35 ,39,4 5,51, 52,56 ,58,5 9,66, 68). Cervi sammie sourc es are requi red for HPV testi ng. If a vagin al sourc e from a patie nt who has had a total hyste recto my with remov al of cervi x was submi tted, pleas e conta ct the testi ng labor atory for alter nativ e testi ng optio ns. For addit ional infor darlene villanueva pleas e refer to http: //[facility] priyanka villanueva.que stdia gnost ics.c om/fa q/FAQ 129v1 (This link if provi ded for infor darlene villanueva/ educa charlotte l purpo ses only. ) Not Available [facility] [place] [facility] [address] [facility], [facility], [place], [address], 01/05/2024 21:58:47 01/03/20 24 01/05/2024 THINP REP TIS PAP, HPV MRNA E6/E7 RFX HPV 16,18 /45, CHLAM YDIA/ N.STEPHANY ORRHO EAE chlamydia trachomatis RNA, tma, urogenital NOT DETECT ED not detect ed normal Not Available [facility] [place] [facility] [address] [facility], [address], [place], [address], 01/05/2024 21:58:47 01/03/20 24 01/05/2024 THINP REP TIS PAP, HPV MRNA E6/E7 RFX HPV 16,18 /45, CHLAM YDIA/ N.STEPHANY ORRHO EAE neisseria gonorrhoeae RNA, tma, urogenital NOT DETECT ED not detect ed normal Not Available [facility] [place] [facility] [address] [facility], [facility], [place], [address], 01/05/2024 21:58:47 01/03/20 24 01/05/2024 THINP REP TIS PAP, HPV MRNA E6/E7 RFX HPV 16,18 /45, CHLAM YDIA/ N.STEPHANY ORRHO EAE comment The patsy tical perfo rmanc e chan cteri stics of this assay , when used to test SureP ath(T M) speci mens have been deter mined by [facility]. The modif icati ons have not been clear ed or appro sotero by the FDA. This assay has been valid ated pursu ant to the CLIA regul ation s and is used for clini sammie purpo ses. For addit ional valencia goodrich e refer to https ://ed ucati on.qu larry pageTalkpush tics. com/f aq/FA Q154 (This link is being provi ded for infor darlene villanueva/ educa charlotte l purpo ses only. ) Not Available [facility] [place] [facility] [address] [facility], [facility], [place], [address], 01/05/2024 21:58:47 07/12/2007/15/2024 URINE CULTU RE, ROUTI NE urine culture, routine Final report Not Available [facility]) [address] [facility], [place], [address], 07/15/2024 01:06:06 07/12/2007/15/2024 URINE CULTU RE, ROUTI NE result 1 COMMEN T Mixed uroge nital kojo 25,00 0-50, 000 colon y formi ng units per mL Not Available [facility] ([facility] [address] [facility], [place], [address], 07/15/2024 01:06:06 07/12/2007/12/2024 pregn sumanth test, urine HCG negati ve Not Available [address], [address], 07/12/2024 17:15:21 07/12/2007/12/2024 urina lysis , dipst ick Leukocytes Large Not Available [address], [address], 07/12/2024 17:15:20 07/12/20 24 07/12/2024 urina lysis , dipst ick Nitrite negati ve Not Available [address], [address], 07/12/2024 17:15:20 07/12/2007/12/2024 urina lysis , dipst ick Urobilinogen .2 Not Available [address], [address], 07/12/2024 17:15:20 07/12/2007/12/2024 urina lysis , dipst ick Protein Negati ve Not Available [address], [address], 07/12/2024 17:15:20 07/12/2007/12/2024 urina lysis , dipst ick pH 6.0 Not Available [address], [address], 07/12/2024 17:15:20 07/12/2007/12/2024 urina lysis , dipst ick Blood Large Not Available [address], [address], 07/12/2024 17:15:20 07/12/2007/12/2024 urina lysis , dipst ick Specific [place] 1.025 Not Available [address], [address], 07/12/2024 17:15:20 07/12/2007/12/2024 urina lysis , dipst ick Ketone Negati ve Not Available [address], [address], 07/12/2024 17:15:20 07/12/2007/12/2024 urina lysis , dipst ick Bilirubin Negati ve Not Available [address], [address], 07/12/2024 17:15:20 07/12/2007/12/2024 urina lysis , dipst ick Glucose Negati ve Not Available [address], [address], 07/12/2024 17:15:20 07/12/2007/12/2024 urina lysis , dipst ick Appearance Clear Not Available [address] [place], [address], 07/12/2024 17:15:20 07/12/20 24 07/12/2024 urina lysis , dipst ick Color Yellow Not Available [address], [address], 07/12/2024 17:15:20 01/31/20 24 XR, wrist , 3 or more view No observ ation record ed. [email or web address] Not Available 2023 15:44:25 Result Notes None recorded. Problems Name Problem SNOMED Code Status Onset Date Resolution Date Notes Provider Name and Address Organization Details Recorded Time Body mass index 25-29 - overweig ht [id number] Completed 201903/22/2022 Problem Code: Z68.26; Problem Code Type: ICD-10; [facility] 17:11:16 General examinat ion of patient Active 2021 Not Available [facility] 2 21:08:45 Uses depot contrace ption 567520318 Active 2021 Not Available [facility] 21:08:46 Problem Notes None recorded. Procedures Surgical History Date Name Laterality Status Provider Name and Address Organization Details Recorded Time 01/03/2024 Date of Last Pap Smear completed [facility] 01/22/2024 15:51:21 Imaging Results None recorded. Procedure Notes None recorded. Medical Equipment None Reported. Allergies No known drug allergies Medications Name Sig Start Date Stop Date Status Note LastModified by Organization Details LastModified Time acetaminoph en 325 mg tablet 10/10 completed Not Available Not Available Not Available azithromyci n 250 mg tablet TAKE 2 TABLETS FIRST DOSE. THEN TAKE ONE TABLET ONCE DAILY TILL ALL TAKEN. 11/22 completed Not Available Not Available Not Available citalopram 10 mg tablet TAKE ONE TABLET BY MOUTH ONCE DAILY FOR ANXIETY active Not Available Not Available No t Available albuterol sulfate 1.25 mg/3 mL solution for nebulizatio n 06/08 completed Not Available Not Available Not Available sumatriptan 100 mg tablet TAKE 1 TABLET BY MOUTH AT START OF HEADACHE 06/08 completed Not Available Not Available Not Available prednisone 20 mg tablet Take 1 tablet every day by oral route for 5 days. 01/28 completed Not Available Not Available Not Available sulfamethox azole 800 mg-trimetho prim 160 mg tablet Take 1 tablet every 12 hours by oral route for 5 days, for UTI. active Not Available Not Available No t Available prednisone 10 mg tablets in a dose pack 07/25 completed Not Available Not Available Not Available famotidine 20 mg tablet 10/10 completed Not Available Not Available Not Available Depo-Computer Training Specialist a 150 mg/mL intramuscul ar suspension Inject 1 mL every 3 months by intramusc ular route. 2023 active Not Available Not Available Not Avai lable benzonatate 100 mg capsule TAKE 1 CAPSULE BY MOUTH THREE TIMES DAILY NEEDED FOR COUGH 06/08 completed Not Available Not Available Not Available buspirone 10 mg tablet TAKE ONE TABLET BY MOUTH TWICE DAILY active Not Available Not Available No t Available promethazin e 25 mg tablet TAKE 1 TABLET BY MOUTH EVERY 6 HOURS FOR 3 DAYS 06/08 completed Not Available Not Available Not Available sertraline 25 mg tablet 10/10 completed Not Available Not Available Not Available levofloxaci n 500 mg tablet 06/08 completed Not Available Not Available Not Available methylpredn isolone 4 mg tablets in a dose pack TAKE BY MOUTH DIRECTED 06/08 completed Not Available Not Available Not Available bromphenira mine-pseudo ephedrine-D M 2 mg-30 mg-10 mg/5 mL oral syrup 07/25 completed Not Available Not Available Not Available ondansetron 4 mg disintegrat ing tablet 11/20 completed Not Available Not Available Not Available fluticasone propionate 50 mcg/actuati on nasal spray,suspe nsion 11/20 completed Not Available Not Available Not Available amoxicillin 875 mg-potassiu m clavulanate 125 mg tablet 07/25 completed Not Available Not Available Not Available Ventolin HFA 90 mcg/actuati on aerosol inhaler inhale 2 puffs by mouth every 4 hours as needed active Not Available Not Available No t Available Fiber-Lax 625 mg tablet 11/20 completed Not Available Not Available Not Available Depo-Computer Training Specialist a 150 mg/mL intramuscul ar syringe inject 1 millilite r (150 mg) by intramusc ular route every 3 months 07/25 completed Not Available Not Available Not Available azithromyci n 500 mg tablet 07/25 completed Not Available Not Available Not Available 12 Hour Nasal Decongestan t (PSE) 120 mg tablet,exte nded release 07/25 completed Not Available Not Available Not Available Vitals Date Recorded Body height Body mass index (BMI) Body weight Body temperature Heart rate Oxygen saturation Systolic And Diastolic Provider Name and Address Organization Details Last Updated DateTime 4 157.48 cm 29.4 kg/m2 72244.6 5 g 98.7 [degF] 93 /min 97 % 94/61 mm[Hg] [employer] 4 15:56:33 Date Recorded Body height Body mass index (BMI) Body weight Body temperature Heart rate Oxygen saturation Systolic And Diastolic Provider Name and Address Organization Details Last Updated DateTime 4 157.48 cm 30.8 kg/m2 50573.9 6 g 98 [degF] 98 /min 98 % 111/71 mm[Hg] [employer] 4 13:03:54 Date Recorded Body height Body mass index (BMI) Body weight Body temperature Heart rate Oxygen saturation Systolic And Diastolic Provider Name and Address Organization Details Last Updated DateTime 4 157.48 cm 30.2 kg/m2 35308.4 6 g 98 [degF] 94 /min 98 % 115/71 mm[Hg] [employer] 4 16:54:27 Date Recorded Body height Body mass index (BMI) Body weight Body temperature Heart rate Oxygen saturation Systolic And Diastolic Provider Name and Address Organization Details Last Updated DateTime 4 157.48 cm 31 kg/m2 51158.2 7 g 98 [degF] 103 /min 98 % 98/64 mm[Hg] [employer] 4 16:10:23 Date Recorded Body height Body mass index (BMI) Body weight Heart rate Oxygen saturation Systolic And Diastolic Provider Name and Address Organization Details Last Updated DateTime 4 157.48 cm 31.6 kg/m2 91049.4 8 g 93 /min 98 % 123/68 mm[Hg] Izabela Owens [employer]. 4 16:29:13 Social History Question Answer Notes LastModified by Organizat ion Details LastModified Time Tobacco Smoking Status Never Smoker Francheska Rosemarie bailon, [employer]. 11/21/2022 10:21:36 Do You Have An Advance Directive? No Information n ot available 06/08/2022 Is Your Home Air Conditioned? Yes Information not available 06/08/2022 Do You Wear A Helmet When Biking? No Information not available 06/08/2022 Are You Blind Or Do You Have Difficulty Seeing? No Information n ot available 06/08/2022 Are You A Caregiver? No Information not available 06/08/2022 In The 14 Days Before Symptom Onset, Have You Had Close Contact With A Laboratory-confirm ed COVID-19 While That Case Was Ill? No Information n ot available 06/08/2022 In The 14 Days Before Symptom Onset, Have You Had Close Contact With A Person Who Is Under Investigation For COVID-19 While That Person Was Ill? No Information not available 06/08/2022 Have You Been To An Area Known To Be High Risk For COVID-19? No Information not available 06/08/2022 Are You Deaf Or Do You Have Serious Difficulty Hearing? No Information not available 06/08/2022 What Type Of Diet Are You Following? REGULAR Information n ot available 06/08/2022 What Is The Highest Grade Or Level Of School You Have Completed Or The Highest Degree You Have Received? [id number] Information not available 06/08/2022 Are There Any Guns Present In Your Home? No Information not available 06/08/2022 Which Of Your Hands Is Dominant? Right Information n ot available 06/08/2022 Do You Have A Medical Power Of Bobbin Handler? No Information not available 06/08/2022 What Was The Date Of Your Most Recent Tobacco Screening? 07/12/2024 Information not available 07/12/2024 Do You Have Any Pets? Yes Information not available 06/08/2022 What Is Your Relationship Status? Single Information not available 06/08/2022 Do You Use Your Seat Belt Or Car Seat Routinely? Yes Information not available 06/08/2022 Are You Sexually Active? Yes Information not available 06/08/2022 Do You Have Smoke And Carbon Monoxide Detectors In Your Home? Yes Information not available 06/08/2022 Are You Passively Exposed To Smoke? No Information no t available 06/08/2022 Are There Any Smokers In Your House? No Information not available 06/08/2022 Do You Participate In Social Media? Yes Information not available 06/08/2022 Do You Use Sunscreen Routinely? No Information not available 06/08/2022 Has Tobacco Cessation Counseling Been Provided? No Information not available 06/08/2022 Have You Recently Traveled Abroad? No Information not available 06/08/2022 Do You Have Difficulty Walking Or Climbing Stairs? No Information not available 06/08/2022 Are You Currently In School? No Information not available 06/08/2022 Do You Have Any Dietary Restrictions? No Information not available 06/08/2022 Sex: Female Functional Status Question Answer Note LastModified by [employer] ion Details LastModified Time Do you use any illicit or recreational drugs? No Information not available 06/08/2022 Do you or have you ever used any other forms of tobacco or nicotine? No Information not available 06/08/2022 What is your level of alcohol consumption? None Information not available 06/08/2022 Are you currently employed? Yes Information not available 06/08/2022 Do you have transportation difficulties? No Information not available 06/08/2022 Are you able to walk independently without assistance or assistive devices? YESWOREST Information not available 06/08/2022 Do you have difficulty doing errands alone? No Information not available 06/08/2022 Are you able to care for yourself independently? Yes Information not available 06/08/2022 Do you have difficulty dressing, bathing, grooming, or toileting? No Information not available 06/08/2022 Mental Status Question Answer Note LastModified by Organizat ion Details LastModified Time Do you feel stressed (tense, restless, nervous, or anxious, or unable to sleep at night)? [id number] Information not available 07/12/2024 Do you have difficulty concentrating, remembering or making decisions? No Information no t available 06/08/2022 Family History Relationship Description Onset Age of this Age Resolved Age Notes LastModified by Organization Details LastModified Time Father No current problems or disability [email or web address] Not available 06/08 17:11:36 Mother No current problems or disability [email or web address] Not available 06/08 17:11:36 Medical History Condition Response Hospitalizations N Emergency room visit since last appointm ent. N Gynecological History Statement/Question Response Date of Last Pap Smear 01/03/2024 Most Recent Mammogram Obstetrics History GPAL:G 0 P 0 0 0 0 Immunizations Vaccine Type Date Status Note Provider Nam e and Address Organization Details Recorded Time DTaP, unspecified formulation 4 completed LEÓN MYNEAR null, [employer] 09/06/2022 11:23:31 DTaP, unspecified formulation 9 completed LEÓN MYNEAR null, [employer] 09/06/2022 11:23:31 Hib (PRP-OMP) 9 completed LEÓN MYNEAR null, [employer] 09/06/2022 11:23:31 varicella 0 completed LEÓN MYNEAR null, [employer] 09/06/2022 11:23:31 IPV 9 completed LEÓN MYNEAR null, [employer] 09/06/2022 11:23:31 Hib (PRP-OMP) 9 completed LEÓN MYNEAR null, [employer] 09/06/2022 11:23:31 IPV 4 completed LEÓN MYNEAR null, [employer] 09/06/2022 11:23:31 varicella 1 completed LEÓN MYNEAR null, [employer] 09/06/2022 11:23:31 DTaP, unspecified formulation 0 completed LEÓN MYNEAR null, [employer] 09/06/2022 11:23:31 MMR 4 completed LEÓN MYNEAR null, [employer] 09/06/2022 11:23:31 Tdap 8 completed LEÓN MYNEAR null, [employer] 09/06/2022 11:23:31 MMR 0 completed LEÓN MYNEAR null, [employer] 09/06/2022 11:23:31 DTaP, unspecified formulation 9 completed LEÓN MYNEAR null, [employer] 09/06/2022 11:23:31 IPV 9 completed LEÓN MYNEAR null, [employer] 09/06/2022 11:23:31 meningococcal MCV4, unspecified formulation 1 completed LEÓN MYNEAR null, [employer] 09/06/2022 11:23:31 Hib (PRP-OMP) 9 completed LEÓN MYNEAR null, [employer] 09/06/2022 11:23:31 Tdap 1 completed LEÓN MYNEAR null, [employer] 09/06/2022 11:23:31 Hib-Hep B 0 completed LEÓN MYNEAR null, [employer] 09/06/2022 11:23:31 DTaP, unspecified formulation 9 completed LE[facility]N DEEPTHINEAR [facility], [facility] 09/06/2022 11:23:31 IPV 0 completed LEÓN MYNEAR null, [facility] [employer] 09/06/2022 11:23:31 Past Encounters Encounter ID Performer Location Encounter Start Date Encounter Closed Date Diagnosis/Indication Diagnosis SNOMED-CT Code Diagnosis ICD10 Code Diagnosis IMO Codes Diagnosis [place] [id number] [place] [address] 06/08/2022 16:42:42 06/08/2022 17:44:59 Uses depot contraception 952686288 Z30.42 [id number] Mao Pacheco [place] [address] 09/06/2022 10:46:43 09/06/2022 11:44:46 Uses depot contraception 166528737 Z30.42 We reviewed nutrition, folic acid, environmen gerald hazards and toxins. [id number] Mao Pacheco [place] [address] 0 11/22/2022 11:08:29 11/22/2022 11:32:17 Uses depot contraception 278503009 Z30.42 We reviewed nutrition, folic acid supplement ation, environmen gerald hazards and toxins. [id number] Mao Pacheco [place] [address] 0 02/14/2023 13:21:25 02/14/2023 14:14:21 Uses depot contraception 450827113 Z30.42 We reviewed nutrition, folic acid supplement ation, environmen gerald hazards and toxins. [id number] Mao Pacheco [place] [address] 0 05/08/2023 15:50:55 05/08/2023 17:06:38 Acute upper respiratory infection 22159480 J06.9 Patient presented with symptoms of upper respirator y infection. Advised to drink plenty of fluids, run a cool-mist humidifier in room at night, gargle salt water for sore throat, and get plenty of rest. Patient should avoid over-exert ion and reduce exposure to irritants such as smoke, cold, dry air, and dust. Treatment currently involves symptomati c relief. Patient may take acetaminop hen or ibuprofen as directed to reduce fever and body aches. Antihistam ine and decongesta nt usage was discussed and recommenda tions made. Patient understood these instructio ns and will follow up in the office in 10 days to 2 weeks if symptoms not improving. Surveillan ce of depot contraception done [id number] 9104 Z30.42 [id number] [place] [address] 07/25/2023 15:00:41 07/25/2023 15:46:08 Uses depot contraception 259649640 Z30.42 We reviewed nutrition, folic acid supplement ation, environmen gerald hazards and toxins. [id number] Mao Pacheco [place] [address] 0 10/10/2023 10:25:13 10/10/2023 14:32:33 Uses depot contraception 644464682 Z30.42 Effectiven ess, correct use, advantages /disadvant ages, common side effects, serious complicati ons, contra-ind ications/p recautions and return to fertility were reviewed for the following: Combined oral contracept sherley (pills/pat ch/ring), Progestero ne-only pills, DepoProver a injection, Nexplanon implant,Sk yla IUD, Mirena IUD, Paragard IUD, Condoms, Diaphragm, Spermacide s, Permanent sterilizat ion (tubal ligation & Essure), Vasectomy for partner. [id number] Kayla Manclila [place] [address] 0 11/20/2023 11:23:54 11/20/2023 12:44:01 Fever 806177173 R50.9 COVID-19 857626857 U07.1 Body mass index 25-29 - overweight 757762038 Z68.29 [id number] Mao Pacheco [place] [address] 0 01/03/2024 15:40:35 01/03/2024 16:13:48 Uses depot contraception 004642314 Z30.42 Effectiven ess, correct use, advantages /disadvant ages, common side effects, serious complicati ons, contra-ind ications/p recautions and return to fertility were reviewed for the following: Combined oral contracept sherley (pills/pat ch/ring), Progestero ne-only pills, DepoProver a injection, Nexplanon implant,Sk yla IUD, Mirena IUD, Paragard IUD, Condoms, Diaphragm, Spermacide s, Permanent sterilizat ion (tubal ligation & Essure), Vasectomy for partner. Adult [facility] th examination 307525711 Z00.00 Body mass index 30+ - obesity 042166128 Z68.30 Contracept ion care management 758085701 Z30.9 [id number] Mao Pacheco [place] [address] 0 01/22/2024 15:35:42 01/22/2024 16:07:53 Acute bronchitis 88094969 J20.9 Cough The patient presents wet cough. The patient's condition is worsening. Based on the findings today we will begin medication therapy. Reviewed symptomati c care instructio ns, the expected course of these illnesses and explained that coughing can persist for some time. Provided precaution s for signs of worsening disease and instructio ns on contacting us if symptoms worsen. [id number] Mao Pacheco APRN [address] 0 01/29/2024 12:57:06 01/30/2024 12:36:48 Pain of left wrist [id number] 61449 M25.532 RICE, obtain x ray, wrist splint recommende d. Ibu prn. [id number] Mao Pacheco [address] 0 04/03/2024 16:33:49 04/03/2024 17:04:20 Uses depot contraception 047710148 Z30.42 Effectiven ess, correct use, advantages /disadvant ages, common side effects, serious complicati ons, contra-ind ications/p recautions and return to fertility were reviewed for the following: Combined oral contracept sherley (pills/pat ch/ring), Progestero ne-only pills, DepoProver a injection, Nexplanon implant,Sk yla IUD, Mirena IUD, Paragard IUD, Condoms, Diaphragm, Spermacide s, Permanent sterilizat ion (tubal ligation & Essure), Vasectomy for partner. [id number] Mao Pacheco[address] [address] 06/24/2024 15:49:24 06/24/2024 16:20:41 Uses depot contraception 143801344 Z30.42 Effectiven ess, correct use, advantages /disadvant ages, common side effects, serious complicati ons, contra-ind ications/p recautions and return to fertility were reviewed for the following: Combined oral contracept sherley (pills/pat ch/ring), Progestero ne-only pills, DepoProver a injection, Nexplanon implant,Sk yla IUD, Mirena IUD, Paragard IUD, Condoms, Diaphragm, Spermacide s, Permanent sterilizat ion (tubal ligation & Essure), Vasectomy for partner. [id number] Mao Pacheco [address] [address] 07/12/2024 15:52:36 07/12/2024 17:59:10 Abdominal pain 54994141 R10.9 Generalize d anxiety disorder 97327990 F41.1 Patient identified triggers for anxiety and impact of anxious thinking on functionin g. Discussed strategies to regulate symptoms and need for compliance with treatment. Acute urin ho tract infection 544189215 N39.0 Patient presents with symptoms of UTI. Results of dipstick were positive for UTI. Advised to drink clear fluids, reduce sexual activity, Tylenol for pain and take prescribed medication s as instructed . Patient encouraged to follow up within 1 week if not improving. Body mass index 30+ - obesity 741213085 Z68.30 Health Concerns Section Related Observation LastModified by Organization Detai ls LastModified Time None Recorded Concern Status LastModified by Organization Details LastModified Time None Recorded Advance Directives Directive N: Payers Insurance Date Sequence Insurance Name Policy Number Policy Thomason Covered Member ID Thomason Member ID Guarantor Name 04/03/2024 [place] [facility] [place] (MEDICAID) Hope Jarek [id number] Hope Jarek 06/08/2022 1 *SELF PAY* Ho pe Jarek 05/23/2024 1 *SELF PAY* Ho pe Jarek 09/06/2024 1 [place] [facility] [place] FFS/TRADITIONA L Hope Jarek [id number] Hope Jarek 07/18/2024 1 [facility] [facility] (MEDICAID HMO) Hope E Jarek [id number] Hope Jarek 04/02/2024 1 [employer] [facility] (MEDICAID HMO) Hope Jarek [id number] Hope Jarek 08/14/2023 1 UNSPECIFIED REMIT PAYOR Hope Jarek Notes Date Note Type Note Provider Name and Address Organization Details Recorded Time 01/22/20 24 text/htm l CoughReported by PatientHPIFor severity, patient reportsworseningandpain with coughbut reportsmoderate. For context, patient reportssmokerbut reportsworse at night. For associated symptoms, patient reportsfever,chills,wheezing,spu donna production,throat clearing,nasal discharge, anddyspnea. For quality, patient reportsproductive. For duration, patient reportsacute (<3 weeks). For onset/timing, patient reportsgradualandbecomes worse as the day goes on. For modifying factors, patient reportsotc medication.ROS as noted in the HPI Mao Pacheco, GUTIERREZ [address] [facility], [place], [phone], [facility] [employer]} [employer] 01/22/2024 18:01:05 01/29/20 24 text/htm l Musculoskeletal PainReported by PatientHPIFor quality, patient reportssharp. For severity, patient reportsworseningandinterferes with work/school. For location, patient reportsleft wrist(pain radiates to left thumb). For duration, patient reportspresent for 1-6 months(2-3 months). For timing, patient reportsintermittentandgradual. For context, patient reportsoveruse. For alleviating factors, patient reportsrest. For aggravating factors, patient reportsmovement/positioning(wris t extension). For associated symptoms, patient reportsno fever,no weak limbs,no tingling,no numbness of the legs/feet, andno incontinence.C/o firm knot that developed on left medial radial wrist three months ago. The area is increasingly more painful with repetitive wrist extension and pain radiates to left thumb.ROS as noted in the [facility] Mao Pacheco APRN [address] [place] [address], [phone], [facility] [employer] 01/29/2024 15:02:13 04/03/20 24 text/htm l OCP CheckReported by PatientHPIFor associated symptoms, patient reportsirregular menses. For context, patient reportsreason for starting ocps:needs refill on depoandmenstrual cycle disorder.ROS as noted in the HPI Emergency Room Admission Information Have you been to the emergency room since the last clinic visit? No Have you been in the hospital since your last visit? No Treatment Selection Please select all that apply: I require treatment/medication for chronic pain - No I have had a heart catheterization - No I have had arterial stents placed - No I have had a colonoscopy - No I have had a hysterectomy - No I regularly have a PAP smear - No I regularly have a mammogram - No Procedure Locations Has the Patient ever had a colonoscopy? No Has the Patient ever had a pap smear? Yes Dentist Confirmation Do you have a Dentist? Yes What is your Dentist's name? Gavin Deloen from [facility] on 06/08/2022 Emergency Room Admission Information Have you been to the emergency room since the last clinic visit? No Have you been in the hospital since your last visit? No Treatment Selection Please select all that apply: I require treatment/medication for chronic pain - No I have had a heart catheterization - No I have had arterial stents placed - No I have had a colonoscopy - No I have had a hysterectomy - No I regularly have a PAP smear - No I regularly have a mammogram - No Procedure Locations Has the Patient ever had a colonoscopy? No Has the Patient ever had a pap smear? Yes Dentist Confirmation Do you have a Dentist? Yes What is your Dentist's name? [facility] on 06/08/2022 Emergency Room Admission Information Have you been to the emergency room since the last clinic visit? No Have you been in the hospital since your last visit? No Treatment Selection Please select all that apply: I require treatment/medication for chronic pain - No I have had a heart catheterization - No I have had arterial stents placed - No I have had a colonoscopy - No I have had a hysterectomy - No I regularly have a PAP smear - No I regularly have a mammogram - No Procedure Locations Has the Patient ever had a colonoscopy? No Has the Patient ever had a pap smear? Yes Dentist Confirmation Do you have a Dentist? Yes What is your Dentist's name? [facility] on 06/08/2022 Mao Pacheco APRN [address] [place] [address], [phone], [facility] [employer] 04/03/2024 17:16:27 06/24/20 24 text/htm l OCP CheckReported by PatientHPIFor associated symptoms, patient reportsirregular menses. For context, patient reportsreason for starting ocps:needs refill on depoandmenstrual cycle disorder.ROS as noted in the [facility] Emergency Room Admission Information Have you been to the emergency room since the last clinic visit? No Have you been in the hospital since your last visit? No Treatment Selection Please select all that apply: I require treatment/medication for chronic pain - No I have had a heart catheterization - No I have had arterial stents placed - No I have had a colonoscopy - No I have had a hysterectomy - No I regularly have a PAP smear - No I regularly have a mammogram - No Procedure Locations Has the Patient ever had a colonoscopy? No Has the Patient ever had a pap smear? Yes Dentist Confirmation Do you have a Dentist? Yes What is your Dentist's name? [facility] from [facility] on 06/08/2022 Emergency Room Admission Information Have you been to the emergency room since the last clinic visit? No Have you been in the hospital since your last visit? No Treatment Selection Please select all that apply: I require treatment/medication for chronic pain - No I have had a heart catheterization - No I have had arterial stents placed - No I have had a colonoscopy - No I have had a hysterectomy - No I regularly have a PAP smear - No I regularly have a mammogram - No Procedure Locations Has the Patient ever had a colonoscopy? No Has the Patient ever had a pap smear? Yes Dentist Confirmation Do you have a Dentist? Yes What is your Dentist's name? [facility] from [facility] on 06/08/2022 Emergency Room Admission Information Have you been to the emergency room since the last clinic visit? No Have you been in the hospital since your last visit? No Treatment Selection Please select all that apply: I require treatment/medication for chronic pain - No I have had a heart catheterization - No I have had arterial stents placed - No I have had a colonoscopy - No I have had a hysterectomy - No I regularly have a PAP smear - No I regularly have a mammogram - No Procedure Locations Has the Patient ever had a colonoscopy? No Has the Patient ever had a pap smear? Yes Dentist Confirmation Do you have a Dentist? Yes What is your Dentist's name? [facility] on 06/08/2022 Mao Pacheco APRN [address] [place] [address], [phone], [facility] [employer] 06/24/2024 16:54:52 07/12/20 24 text/htm l Anxiety/DepressionReported by PatientHPIFor severity, patient reportsincreased anxiety,interference with activities of daily living, andinterference with workbut reportsdenies suicidal ideations. For context, patient reportsmajor life stressors,trouble at work, andrelationship stress. For associated symptoms, patient reportshigh irritability,anxiety,anxiety with muscle tension,palpitations,flushing,sh ortness of breath,apprehension,excessive worrying, andpanic symptoms. For duration, patient reportschronic. For onset/timing, patient reportsgradualandfrequent. For modifying factors, patient reportssocial support(reports she has previously been on zoloft and another unknown med that was 25 mg for anxiety a few years ago).Feels very stressed by her job and ind is short fused. Lower Urinary Tract Symptoms (LUTS)Reported by PatientHPIFor context, patient reportsexcessive caffeine intake. For associated symptoms, patient reportsabdominal pain,dysuria, andsuprapubic pain. For location, patient reportsbladder. For quality, patient reportstender(cramping). For severity, patient reportsmild. For duration, patient reports< 1 week.ROS as noted in the HPI Mao Pacheco APRN [address] [place], [phone], [facility] [employer] 07/14/2024 16:44:09 OBGyn Episode No OBEpisode recorded.
--- NOTE | 2025-09-22 17:42 | ECG_ITS ---
APPROVED REPORT Exam: Resting ECG HR:82 bpm ECG Measurements Heart Rate 82 AXES WI 156 P 56 QRSd 81 QRS 62 QT 347 T 45 QTc 385 Conclusion SINUS RHYTHM NORMAL ECG UNCONFIRMED REPORT Electronically signed by : JUANJO YU, 09/22/2025 21:48:49
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
[2025-09-22 17:47] LABS: Hematocrit 40.7 % (37.0-47.0); Hemoglobin 13.4 g/dL (12.2-16.2); Immature Granulocytes % 0.4 %; Mean Corpuscular HGB Conc 32.9 g/dL (31.8-35.4); Mean Corpuscular Hemoglobin 27.8 pg (27.0-31.2); Mean Corpuscular Volume 84.4 fl (81-99); Nucleated Red Blood Cells % 0 %; Platelet Count 306 K/mm3 (142-424); Red Blood Count 4.82 M/mm3 (4.20-5.40); Red Cell Distribution Width-SD 37.8 fL; White Blood Count 13.4 K/mm3 (4.8-10.8)
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
[2025-09-22 17:53] LABS: Albumin Level 4.4 g/dl (3.5-5.0); Chloride 104 mmol/L (98-107)
[2025-09-22 17:54] LABS: Potassium 4.2 mmoL/L (3.5-5.1); Sodium 138 mmol/L (136-145)
[2025-09-22 17:56] VITALS: BP 124/78
[2025-09-22 17:56] LABS: Activated Partial Thrombo Time 23.5 seconds (22.8-30.6); Blood Urea Nitrogen 10 mg/dl (7-17); Creatinine,Serum 0.70 mg/dl (0.52-1.04); Estimated Glomerular Filt Rate 101 ml/min (>60); GFR (African American) 122 ML/MIN (>60); INR 1.00 (0.9-1.1); Prothrombin Time 11.1 seconds (10.1-12.5)
[2025-09-22 17:57] LABS: Alanine Aminotransferase 28 U/L (12-78); Albumin/Globulin Ratio 1.3 (1.1-1.8); Alkaline Phosphatase 45 U/L (38-126); Anion Gap 10.2 mEq/L (5-15); Aspartate Amino Transferase 45 U/L (14-36); Bilirubin,Total 0.5 mg/dl (0.2-1.3); Calcium 9.7 mg/dl (8.4-10.2); Carbon Dioxide 28 mmol/L (22.0-30.0); Globulin 3.5 g/dL (1.3-3.2); Glucose 77 mg/dl (74-100); Total Protein,Serum 7.9 g/dl (6.3-8.2)
[2025-09-22 17:58] VITALS: BP 124/78; PULSE 80; RESP 18; TEMP 36.9; O2SAT 100
[2025-09-22] MEDS: 0.9 % SODIUM CHLORIDE 50 ML VIAL 80 ML IV (18:13)
[2025-09-22] MEDS: SODIUM CHLORIDE 0.9% 10ML SYR (RAD ONLY) 10 ML IV (18:13)
[2025-09-22] MEDS: IOPAMIDOL-370 (76%);100ML BOTTLE 160 ML IV (18:13)
[2025-09-22] MEDS: FENTANYL 100MCG/2ML VIAL 75 MCG NS (18:21)
[2025-09-22 18:30] VITALS: BP 128/73; PULSE 98; O2SAT 99
[2025-09-22 19:14] LABS: Hepatitis C Ab Qual. W/ RFX NEGATIVE (Negative)
[2025-09-22 20:03] LABS: HCG Qualitative, Serum Negative (Negative)
[2025-09-22] MEDS: IBUPROFEN 800 MG TABLET PO (20:28)
[2025-09-22 20:42] VITALS: BP 128/73; PULSE 89; RESP 16; TEMP 36.9; O2SAT 98
== END 2025-09-22 20:58 | disposition home or self-care (01) ==
PROVIDERS: Emergency Provider Student in an Organized Health Care Education/Training Program; PCP Nurse Practitioner Family
DX: S32.028A Other fracture of second lumbar vertebra, initial encounter for closed fracture (principal); V49.9XXA Car occupant (driver) (passenger) injured in unspecified traffic accident, initial encounter
CPT/HCPCS: 70450; 70496; 70498; 71045; 71275; 72125; 72128; 72131; 72170; 72192; 74174; 80053; 84703; 85025; 85610; 85730; 86803; 87389; 93005; 96374; 99285; 99291; G0390; J3010; Q9967